=== PATIENT | male | born 1980 | race Hispanic/Latino ===

== ENCOUNTER 2020-05-14 15:02 | Emergency (ER) | payer BC ==
[~2020-05-14] VITALS: Ht 185.4 cm; Wt 126.6 kg
[2020-05-14] MEDS ORDERED: HYDROCODONE/APAP 5MG-325MG TAB PO ONE (15:45)
[2020-05-14] MEDS ORDERED: KETOROLAC TROMETHAMINE 60 MG/2 ML VIAL IM ONE (15:45)
[2020-05-14] MEDS ORDERED: LORAZEPAM INJ 2 MG/ML VIAL IM ONE (15:45)
[2020-05-14] MEDS ORDERED: PREDNISONE20 MG PO (16:12)
[2020-05-14] MEDS ORDERED: CYCLOBENZAPRINE5 MG PO (16:12)
--- NOTE | 2020-05-14 16:12 | Emergency Department Note ---
History of Present Illnes History of Present Illness Chief Complaint: left lower Back Pain when lifting heavy object History of Present Illness This is a 39 year old male. was doing well prior to this. 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 Any updates have been documented here. Past Medical History Recent Fever: No Clinical Suspicion of Infectio: No New/Unexplained Change in Ment: No Past Medical History: None Past Surgical History: Bariatric Surgery Social History Physically hurt or threatened: No Review of Systems Review of Systems Constitutional: Reports no symptoms EENTM: Reports no symptoms Cardiovascular: Reports no symptoms Respiratory: Reports no symptoms Gastrointestinal: Reports no symptoms Genitourinary: Reports no symptoms Musculoskeletal: Reports as per HPI Integumentary: Reports no symptoms Neurological: Reports no symptoms Psychological: Reports no symptoms Endocrine: Reports no symptoms Hematological/Lymphatic: Reports no symptoms Review of other systems: All other systems negative Physical Exam Related Data Allergies: Coded Allergies: No Known Allergies (Unverified , 05/14/20) Triage Vital Signs Vital Signs Date Time Temp Pulse Resp B/P (MAP) Pulse Ox O2 Delivery O2 Flow Rate FiO2 05/14/20 15:10 97.8 90 18 133/94 100 Room Air Vital signs reviewed: Yes Physical Exam CONSTITUTIONAL Constitutional: Present well-developed, Present well-nourished HENT HENT: Present normocephalic, Present atraumatic, Present oropharynx clear/moist, Present nose normal HENT L/R: Present left ext ear normal, Present right ext ear normal EYES Eyes: Reports PERRL, Reports conjunctivae normal NECK Neck: Present ROM normal PULMONARY Pulmonary: Present effort normal, Present breath sounds normal CARDIOVASCULAR Cardiovascular: Present regular rhythm, Present heart sounds normal, Present capillary refill normal, Present normal rate GASTROINTESTINAL Abdominal: Present soft, Present nontender, Present bowel sounds normal GENITOURINARY Genitourinary: Present exam deferred SKIN Skin: Present warm, Present dry MUSCULOSKELETAL Musculoskeletal: Present ROM normal, Present tenderness (left lower back tenderness/muscle spasms); Absent edema, Absent deformity, Absent swelling NEUROLOGICAL Neurological: Present alert, Present oriented x 3, Present no gross motor or sensory deficits PSYCHOLOGICAL Psychological: Present mood/affect normal, Present judgement normal Assessment & Plan Medical Decision Making MDM back strain Reassessment Reassessment time: 16:07 Reassessment decreased pain s/p meds Assessment & Plan Final Impression: (1) Lumbar strain Depart Disposition: HOME, SELF-CARE Last Vital Signs Date Time Temp Pulse Resp B/P (MAP) Pulse Ox O2 Delivery O2 Flow Rate FiO2 05/14/20 15:10 97.8 90 18 133/94 100 Room Air Home Meds Active Scripts Cyclobenzaprine Hcl (FLEXERIL) 5 Mg Tablet, 10 MG PO Q8H PRN for MUSCLE SPASMS, #30 TAB take after prednisone to control pain if need be Prov:YOLIS RICE 05/14/20 Prednisone (PREDNISONE) 20 Mg Tab, 80 MG PO DAILY PRN for MODERATE PAIN (4-6), #16 TAB take all 4 pills at once Prov:YOLIS RICE 05/14/20 Medications in the ED Ketorolac Tromethamine 60 mg ONCE ONCE IM ; Start 05/14/20 at 15:45; Stop 05/14/20 at 15:52; Status DC Acetaminophen/ Hydrocodone Bitart 1 ea ONCE ONCE PO ; Start 05/14/20 at 15:45; Stop 05/14/20 at 15:51; Status DC Lorazepam 2 mg ONCE ONCE IM ; Start 05/14/20 at 15:45; Stop 05/14/20 at 15:52; Status DC YOLIS RICE May 14, 2020 16:12
== END 2020-05-14 16:30 | disposition home or self-care (01) ==
LOC: FSED 15:25
DX: S39.012A Strain of muscle, fascia and tendon of lower back, initial encounter (principal); X50.0XXA Overexertion from strenuous movement or load, initial encounter; Y93.H2 Activity, gardening and landscaping; Y92.008 Other place in unspecified non-institutional (private) residence as the place of occurrence of the external cause; Z98.84 Bariatric surgery status
CPT/HCPCS: 99283; J1885; J2060